=== PATIENT | female | born 2005 | race Caucasian/White ===

== ENCOUNTER 2023-02-20 00:33 | Emergency (ER) | payer OTHER ==
[~2023-02-20] VITALS: Ht 177.8 cm; Wt 67.2 kg
[2023-02-20 00:41] VITALS: O2SAT 96
[2023-02-20] MEDS ORDERED: ACET-2708 MT (02:15)
[2023-02-20 02:29] VITALS: BP 117/84; PULSE 95; RESP 16; TEMP 99.4
[2023-02-21] MEDS ORDERED: LEVO750T68 PO (10:02)
== END 2023-02-20 02:30 | disposition home or self-care (01) ==
LOC: ER 00:33
DX: R50.9 Fever, unspecified (principal); R05.1 Acute cough; Z90.89 Acquired absence of other organs; Z20.822 Contact with and (suspected) exposure to COVID-19
CPT/HCPCS: 99284; 71045; 87426; 81025; 87430; 87070; 87804 ×2; C9803